=== PATIENT | male | born 1980 | race Caucasian/White ===

== ENCOUNTER 2017-03-24 10:25 | Emergency (ER) | payer SELFPAY | END 2017-03-24 11:30 | disposition home or self-care (01) | LOC: D.ER 10:25 | DX: L03.115 Cellulitis of right lower limb (principal); F17.200 Nicotine dependence, unspecified, uncomplicated ==

== ENCOUNTER 2017-05-28 09:18 | Emergency (ER) | payer MEDICAID | END 2017-05-28 10:08 | disposition home or self-care (01) | LOC: D.ER 09:18 | DX: G56.03 Carpal tunnel syndrome, bilateral upper limbs (principal); F17.200 Nicotine dependence, unspecified, uncomplicated ==